=== PATIENT | male | born 1975 | race Caucasian/White ===

== ENCOUNTER 2017-11-30 15:17 | Emergency (ER) | payer SELFPAY ==
[2017-11-30 15:36] VITALS: BP 119/77
[2017-11-30] MEDS ORDERED: Albuterol/Ipratropium NEB.SOL* Albuterol 2.5 MG/Ipratropium 0.5 MG 3 ML INH ONE ×2 (15:38→16:37)
[2017-11-30] MEDS ORDERED: Albuterol/Ipratropium NEB.SOL* Albuterol 2.5 MG/Ipratropium 0.5 MG 3 ML ONE (15:39)
[2017-11-30] MEDS ORDERED: methylPREDNISolone 125 MG* 2 ML VIAL IM ONE (15:39)
--- NOTE | 2017-11-30 15:40 | UC ---
Respiratory Complaint HPI - HPI Summary HPI Summary: 42 y/o Mongolian speaking male presents to the urgent care c/o SOB and wheezing since Wednesday Pt reports symptoms started w/ common cold about 1 weeks. 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 Pt feels his chest is tightness and wheezing. he doesn't have an inhaler. He has has PMHX of asthma and eczema. However it was controlled for many years and he doesn't have an inhaler. He has not aking anything to alleviate symptoms. Pt denies fever, chest pain, abdominal pain, N/V/D, dizziness, SNYDER. - History of Current Complaint Chief Complaint: UCRespiratory Stated Complaint: CHEST PAIN AND SHORTNESS OF BREATH Time Seen by Provider: 11/30/17 15:20 Hx Obtained From: Patient Onset/Duration: Gradual Onset, Lasting Days - 4 days, Still Present, Worse Since - today Timing: Intermittent Episodes Severity Initially: Mild Severity Currently: Moderate Pain Intensity: 8 Pain Scale Used: 0-10 Numeric Character: Cough: Productive, Sputum Description: - green Aggravating Factors: Recumbent Position Alleviating Factors: Nothing Associated Signs And Symptoms: Positive: Wheezing, URI, Nasal Congestion. Negative: Fever, Chills, Pleuritic Chest Pain - Risk Factors Pulmonary Embolism Risk Factors: Negative Cardiac Risk Factors: Negative Pseudomonas Risk Factors: Negative Tuberculosis Risk Factors: Negative - Allergies/Home Medications Allergies/Adverse Reactions: Allergies Allergy/AdvReac Type Severity Reaction Status Date / Time Penicillins Allergy Itching Verified 11/30/17 15:36 PMH/Surg Hx/FS Hx/Imm Hx Previously Healthy: Yes Respiratory History: Asthma Other Respiratory History: eczema - Surgical History Surgical History: None Surgery Procedure, Year, and Place: denies - Family History Known Family History: Positive: Respiratory Disease - asthma - Social History Occupation: Employed Full-time Lives: Alone Alcohol Use: Weekly Substance Use Type: None Smoking Status (MU): Former Smoker Review of Systems Constitutional: Negative Skin: Negative Eyes: Negative ENT: Nasal Discharge, Sinus Congestion, Sinus Pain/Tenderness Respiratory: Shortness Of Breath, Cough - productive, Other - wheezing and chest tightness Cardiovascular: Negative Gastrointestinal: Negative Genitourinary: Negative Motor: Negative Neurovascular: Negative Musculoskeletal: Negative Neurological: Negative Psychological: Negative Is Patient Immunocompromised?: No All Other Systems Reviewed And Are Negative: Yes Physical Exam - Summary Physical Exam Summary: Vital Signs Reviewed: Yes General: well developed, well nourished male sitting in the examining table w/o any apparent respiratory distress Eyes: Positive: Conjunctiva Clear - PERRLA, EOMI, fundi grossly normal ENT: Positive: Normal ENT inspection, Hearing grossly normal, Pharynx normal, Nasal congestion - edematous and erythematous nasal mucosa, Nasal drainage - yellowish drainage, TMs normal. Negative: Tonsillar swelling, Tonsillar exudate Neck: Positive: Supple, Nontender, No Lymphadenopathy Respiratory: no orthopnea or dyspnea. Able to speak in full sentences, no retractions or accessory muscle use, no tripod position, stridor, or head bobbing. Positive breath sounds bilaterally. diffuse scattered wheezing and rhonchi on b/L lungs, no crackles or rales.. Cardiovascular: Positive: RRR, No Murmur, Pulses Normal, Brisk Capillary Refill Abdomen Description: Positive: Nontender, No Organomegaly, Soft. Negative: CVA Tenderness (R), CVA Tenderness (L) Bowel Sounds: Positive: Present Musculoskeletal Exam: Normal Musculoskeletal: Positive: Strength Intact, ROM Intact, No Edema Neurological Exam: Normal Psychological Exam: Normal Skin Exam: Normal Triage Information Reviewed: Yes Vital Signs: Initial Vital Signs Temp 98.7 F 11/30/17 15:25 Pulse 104 11/30/17 15:25 Resp 18 11/30/17 15:25 BP 119/77 11/30/17 15:25 Pulse Ox 94 11/30/17 15:25 Diagnostic Evaluation - Laboratory O2 Sat by Pulse Oximetry: 94 Respiratory Course/Dx - Course Course Of Treatment: 42 y/o Mongolian speaking male presents to the urgent care c/ o SOB and wheezing since Wednesday Pt reports symptoms started w/ common cold about 1 weeks. 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 Pt feels his chest is tightness and wheezing. he doesn't have an inhaler. He has has PMHX of asthma and eczema. However it was controlled for many years and he doesn't have an inhaler. He has not aking anything to alleviate symptoms. Pt denies fever, chest pain, abdominal pain, N/V/D, dizziness. Hx obtained. Pt w/ Diffuse scattered wheezes on bilaterally lungs, no rales or rhonchi, good air entry B/L on examination. O2Sat:94%, EKG ordered to r/o any abnormality due to chest tightness.EKG interpretation, Sinus tachycardia, HR:105 bpm, no ST depressions or elevations. Chest X-ray ordered: No acute cardiopulmonary disease observed. Pt given Prednisone PO and Duoneb Treatment to alleviate symptoms. Pt tolerated well treatment and lungs improved , moderated wheezing still present.O2Sat:95%. Another Duoneb Treatment given 20 min later. Pt tolerated well Tx and felt even better Pt sill w/ mild posterior upper lungs w/wheezing. Patient prescribed Z-saeid PO, Prednisone taper dose, Albuterol inhaler and Tessalon Tabs to alleviate symptoms as directed below. The patient was recommended to increase fluid intake. Take medications as recommended. Pt doesn't have a PCP and is w/o insurance. Patient recommended to return to the clinic or go to the nearest ER if symptoms do not improve or worsen. All D/C instructions explained in Mongolian by myself. Given information for the outpatient free clinic. Patient understood and agree w/ plan of care. Pt left clinic hemodynamically stable , A&OX3. - Differential Dx/Diagnosis Differential Diagnosis/HQI/PQRI: Asthma, Bronchitis, Laryngitis, Lower Resp Infection, Sinusitis Provider Diagnoses: 1- Asthma exacerbation due to bronchitis. 2-cough Discharge - Sign-Out/Discharge Documenting (check all that apply): Patient Departure All imaging exams completed and their final reports reviewed: Yes - Discharge Plan Condition: Stable Disposition: HOME Prescriptions: Albuterol HFA INHALER* [Ventolin HFA Inhaler*] 1 - 2 puff INH Q4H PRN #1 mdi PRN Reason: Wheezing Azithromyxin SAEID (NF) [Z-Saeid (Zithromax) 250 mg tabs #6] 2 tab PO .TODAY, THEN 1 DAILY #6 tab predniSONE TAB* [Deltasone 20 MG TAB*] 20 mg PO DAILY #11 tab Patient Education Materials: Asthma (ED), Acute Bronchitis (ED) Print Language: [place] Forms: *Work Release Referrals: [facility] [place] [facility] REFERR[facility] [Outside] - 3 Days Additional Instructions: 1- [place] Prednisone PO empezando manana 60mg PO por 1 alfredo, luego 40mg cada alfredo por los siguientes 4 kim. 2-Use el inhalador the albuterol para cuando se sienta corto the respiracion, o con silvido. Por favor descanse, coma alin y evite ejercicios pesados.. 3- [place] el antibiotico azytromycin PO para mejorar armstrong bronchitis. 4-Si los simptomas no mejoran y usted sigue corto de respiracion y los pulmones con silvido aunque lamin tomando los medicamentos por favor vaya de inmediato a la emergencia para q le manejen ria symptomas mejor. 5- Por favor siga con un medico primario de [facility] para q le den tratamiento para armstrong asthma. - Billing Disposition and Condition Condition: STABLE Disposition: Home
--- NOTE | 2017-11-30 16:41 | RAD ---
Indication: Shortness of breath, productive cough. 2 views of the chest including dual energy PA views demonstrate no mediastinal shift. Heart is of normal size and configuration. Lung borden appear clear. IMPRESSION: NO ACTIVE CARDIOPULMONARY DISEASE IS NOTED.
== END 2017-11-30 18:02 | disposition home or self-care (01) ==
LOC: UCEAST 15:17
DX: J45.901 Unspecified asthma with (acute) exacerbation (principal); Z88.0 Allergy status to penicillin; Z87.891 Personal history of nicotine dependence; R00.0 Tachycardia, unspecified
CPT/HCPCS: 71046; 93005; 96372; 99203; A9270-GY; G0463; J2930